=== PATIENT | female | born 1965 | race Caucasian/White ===

== ENCOUNTER 2020-06-13 08:25 | Observation (INO) | payer OTHER, SELFPAY ==
[2020-06-13] VITALS (27 sets, daily range): BP systolic 101–157; BP diastolic 56–97; PULSE 87–133; RESP 15–28; TEMP 36–37.1; O2SAT 97–100
--- NOTE | ~2020-06-13 | US_ITS ---
EXAMINATION: US pelvic complete w TV DATE: 06/14/2020 17:32 INDICATION: Vaginal bleeding TECHNIQUE: Multiple transabdominal and endovaginal sonographic images of the pelvis were obtained. COMPARISON: None. FINDINGS: The uterus measures 13.4 x 6.1 x 7.7 cm. The endometrial complex measures 24 mm. There is a 3.5 x 3.9 x 3.4 cm hypoechoic lesion in the uterine fundus which has the appearance of an intramural fibroid. A 7.4 x 6.6 x 6.4 cm isoechoic lesion is seen in the cervix. The ovaries are not visualized however no adnexal abnormality is seen. There is no free fluid in the pelvis. IMPRESSION: 1. Endometrial thickening which may be due to hyperplasia, polyp, or malignancy. Endometrial sampling is recommended. 2. Isoechoic lesion of the cervix possibly reflecting malignancy. Reviewed, dictated and finalized at location A. IMPRESSION: 1. Endometrial thickening which may be due to hyperplasia, polyp, or malignancy . Endometrial sampling is recommended. 2. Isoechoic lesion of the cervix possibly reflecting malignancy.
--- NOTE | 2020-06-13 08:32 | ECG_ITS ---
Measurements Intervals [place] Rate: 106 P: 49 MI: 115 QRS: -8 QRSD: 99 T: 36 QT: 347 QTc: 462 Interpretive Statements SINUS TACHYCARDIA WITH SHORT MI INTERVAL EARLY PRECORDIAL R/S TRANSITION VOLTAGE CRITERIA FOR LVH BORDERLINE ST ABNORMALITY- ANT/HIGH LAT LEADS BASELINE ARTIFACT- I, II, AVR, AVL, AVF ABNORMAL ECG Electronically Signed On 06-13-2020 8:42:42 CDT by Davonte Sosa D.O.
--- NOTE | 2020-06-13 09:01 | ED.FEMALEGU ---
HPI - Female Genitourinary General Chief complaint: Vaginal Bleeding Stated complaint: vaginal bleeding Time Seen by Provider: 06/13/20 08:48 Source: patient Mode of arrival: EMS Limitations: no limitations History of Present Illness HPI Narrative: 54-year-old female History of hypertension and hypothyroid Complains of 2 days of heavy vaginal bleeding with clots She is perimenopausal, reports a prior period around April 25 and does not recall the 1 before that but says it usually about every 6 or 8 weeks She has a mild amount of cramping discomfort She recalls having a similar episode a number of years ago and does not remember exactly what was done but vaguely recalls something about a mesh in her uterus Related Data Home Medications Medication Instructions Recorded Confirmed allopurinol 300 mg PO 06/13/20 levothyroxine 88 mcg PO 06/13/20 levothyroxine 100 mcg PO 06/13/20 metoprolol succinate 25 mg PO 06/13/20 spironolacton-hydrochlorothiaz 25 tablet PO 06/13/20 Allergies Allergy/AdvReac Type Severity Reaction Status Date / Time No Known Allergies Allergy Mild Verified 06/13/20 08:36 Review of Systems Review of Systems: All systems reviewed & are unremarkable except as noted in HPI and below Constitutional: Constitutional: Denies chills, Denies fatigue, Denies fever(s), Denies headache(s) and Denies night sweats Eyes: Eyes: Denies change in vision, Denies loss of vision and Denies other visual disturbances ENT: Denies headache(s), Denies hoarseness, Denies nasal congestion and Denies sore throat Cardiovascular: Cardiovascular: Denies leg edema, Denies palpitations and Denies dyspnea Respiratory: Respiratory: Denies cough, Denies dyspnea and Denies wheezing Gastrointestinal: Gastrointestinal: Denies abdominal pain, Denies diarrhea, Denies nausea and Denies vomiting Genitourinary: Genitourinary: Reports abnormal vaginal bleeding, Denies hematuria, Denies urinary frequency, Denies dysuria, Reports pelvic pain and Reports vaginal discharge Musculoskeletal: Musculoskeletal: Denies abnormal gait, Denies deformity, Denies joint swelling, Denies muscle weakness and Denies numbness Comments: Edema Integumentary/Breasts: Skin/Breast: Denies rash, Denies unusual bruising and Denies wounds Neurologic: Denies abnormal gait, Denies headache(s), Denies focal weakness, Denies loss of vision and Denies numbness Psychiatric: Psychiatric: Reports no additional psychiatric complaints Endocrine: Endocrine: Denies fatigue and Denies palpitations Hematologic/Lymphatic: Hematologic/Lymphatic: Denies easy bleeding and Denies easy bruising Allergic/Immunologic: Allergic/Immunologic: Denies wheezing Exam Const: General: no acute distress and well developed Nutritional Appearance: obese Orientation/consciousness: patient oriented x3 (alert) and Other orientation findings (Alert) HENMT: Head: normal to inspection, normocephalic and atraumatic General nose exam: No nasal discharge present Face and sinus: face symmetric Mouth: Yes tongue normal and Yes moist mucous membranes Throat: other (No exudate, no erythema) Eyes: Conjunctivae: conjunctivae normal Sclera: sclerae normal EOM: EOMs intact bilaterally Neck: Neck: normal visual inspection, full ROM and supple Thyroid: thyroid normal Chest: Chest palpation & inspection: normal inspection of the chest and tenderness Resp: Effort & Inspection: normal respiratory effort Auscultation: clear to auscultation bilaterally, no rales, no rhonchi, no wheezes and other (breath sounds equal) Cardio: Rate: regular rate Rhythm: regular rhythm Heart sounds: no gallops and no murmurs GI: Inspection: non-distended GI Palp: No abdominal tenderness, Yes Soft to palpation, No Tenderness to palpation present (GI) and No Palpable mass present Auscultation: other (bowel sounds present) : Other: Initially did not see much blood at all but once a retroverted cervix was rotated f
[2020-06-13 09:03] LABS: Basophils Percent Auto 0.3 % (0.2-1.2); Eosinophils Percent Auto 0.3 % (0-4.4); Hematocrit 31.1 % (37.0-47.0); Hemoglobin 10.2 g/dL (12.0-15.0); Immature Granulocyte Absolute 0.07 K/mm3 (0.00-0.031); Immature Granulocyte Percent A 0.6 % (0-0.5); Lymphocytes Absolute Auto 1.88 K/mm3 (0.9-3.2); Lymphocytes Percent Auto 16.1 % (18.3-44.2); Mean Corpuscular HGB Conc 32.8 g/dl (32-36); Mean Corpuscular Hemoglobin 29.5 pg (26-34); Mean Corpuscular Volume 89.9 fl (80-100); Mean Platelet Volume 10.3 fl (7.4-10.4); Monocytes Absolute Auto 0.6 K/mm3 (0.1-0.6); Monocytes Percent Auto 4.9 % (2.6-8.5); Neutrophils Absolute Auto 9.1 K/mm3 (1.3-6.7); Neutrophils Percent Auto 77.8 % (45.5-73.1); Platelet Count Result 338 k/mm3 (150-375); Red Blood Count 3.46 M/mm3 (4.2-5.4); Red Cell Distribution Width 13.4 % (11.5-14.5); White Blood Count 11.7 K/mm3 (4.5-10.0)
[2020-06-13] MEDS: LACTATED RINGERS 1,000 ML 999 ML IV CONT ×2 (09:29→11:57)
[2020-06-13 09:30] LABS: Anion Gap 13 mmol/L (8-16); Blood Urea Nitrogen 11 mg/dL (7-17); Calcium 9.1 mg/dL (8.4-10.2); Carbon Dioxide 21 mmol/L (22-30); Chloride 101 mmol/L (98-107); Estimated CRCL calculation 90 ml/min; Estimated Glomerular Filt Rate > 60; Glucose 179 mg/dL (65-105); Potassium 3.3 mmol/L (3.4-5.0); Sodium 135 mmol/L (137-145)
[2020-06-13 09:44] LABS: INR 1.1; Prothrombin Time 13.4 Seconds (11.1-14.7)
[2020-06-13 10:07] LABS: Free T4 Free Thyroxine 1.69 ng/mL (0.78-2.19)
[2020-06-13 10:21] LABS: Thyroid Stimulating Hormone Reflex 0.115 uIU/mL (0.465-4.68)
[2020-06-13] MEDS: ESTROGENS, CONJUGATED 25 MG/5 ML VIAL IM (11:55)
[2020-06-13] MEDS: TRANEXAMIC ACID 1,000 MG/10 ML AMPUL 1000 MG IV PUSH (11:56)
[2020-06-13] MEDS: WATER, STERILE FOR INJECTION 10 ML VIAL XX (11:58)
--- NOTE | 2020-06-13 12:14 | PM.IMHP ---
H&P: HPI History of Present Illness Date/Time: 06/13/20 12:14 Chief complaint: vaginal bleeding Narrative: Marquita Michele is a 54 year old femaleWho presents emergency department with vaginal bleeding. She was evaluated by the emergency room doctor and found to have persistent following bright red blood. Cervix could not be evaluated due to the amount of blood that persisted in the vaginal vault. She denies any chest pain or shortness of breath. She denies any nausea, vomiting, fever, chills. She has long history of irregular bleeding. She has bled intermittently for years. Review of Systems Constitutional: Constitutional: Reports no additional constitutional complaints, Denies fatigue, Denies headache(s), Denies lethargy and Denies weakness Eyes: Eyes: Reports no additional eye complaints, Denies blurry vision and Denies photophobia ENT: Reports as per HPI, Denies headache(s) and Denies neck pain Cardiovascular: Cardiovascular: Denies chest pain, Denies diaphoresis, Denies leg edema, Denies palpitations and Denies dyspnea Respiratory: Respiratory: Denies hemoptysis, Denies dyspnea and Denies wheezing Gastrointestinal: Gastrointestinal: Denies abdominal pain, Denies melena, Denies bloating, Denies hematochezia, Denies nausea and Denies vomiting Genitourinary: Genitourinary: Reports no additional female genitourinary complaints Musculoskeletal: Musculoskeletal: Denies joint swelling, Denies neck pain, Denies numbness and Denies stiffness Neurologic: Denies Abnormal speech present, Denies confusion, Denies headache(s), Denies numbness and Denies weakness Psychiatric: Psychiatric: Denies anxiety, Denies confusion, Denies depression, Denies homicidal ideation and Denies suicidal ideation Endocrine: Endocrine: Denies fatigue and Denies palpitations Allergic/Immunologic: Allergic/Immunologic: Denies wheezing Meds Home Medications and Allergies Home Medications Medication Instructions Recorded Confirmed Type allopurinol 300 mg PO 06/13/20 History levothyroxine 88 mcg PO 06/13/20 History levothyroxine 100 mcg PO 06/13/20 History metoprolol succinate 25 mg PO 06/13/20 History spironolacton-hydrochlorothiaz 25 tablet PO 06/13/20 History Allergies Allergy/AdvReac Type Severity Reaction Status Date / Time No Known Allergies Allergy Mild Verified 06/13/20 08:36 Vital Signs Vital Signs - 24 hr 06/13/20 08:23 06/13/20 09:00 06/13/20 11:00 Temperature 98.7 F Pulse Rate 109 H 102 H 106 H Respiratory Rate 18 21 H Blood Pressure 121/93 H 125/89 115/62 Pulse Oximetry 100 100 06/13/20 11:12 06/13/20 11:13 06/13/20 11:59 Temperature Pulse Rate 108 H 133 H 88 Respiratory Rate 28 H Blood Pressure 101/56 L 120/76 115/62 Pulse Oximetry 100 Exam Const: General: healthy appearing, comfortable and no acute distress; No confusion Orientation/consciousness: No confusion Eyes: Direct Ophthalmoscopy: No photophobia Resp: Auscultation: clear to auscultation bilaterally, no rales, no rhonchi and no wheezes Cardio: Rate: regular rate Heart sounds: no click, no murmurs and no rubs GI: Inspection: non-distended GI Palp: No abdominal tenderness Auscultation: normal bowel sounds Neuro: General: No confusion Speech: No Abnormal speech present Extrem: General: normal to inspection, no pedal edema and no calf tenderness H&P: Results Labs Labs: Short CBC 06/13/20 Range/Units 08:55 WBC 11.7 H (4.5-10.0) K/mm3 Hgb 10.2 L (12.0-15.0) g/dL Hct 31.1 L (37.0-47.0) % Plt Count 338 (150-375) k/mm3 [facility] 06/13/20 08:54 Sodium 135 L Potassium 3.3 L Chloride 101 Carbon Dioxide 21 L BUN 11 Creatinine 0.70 Glucose 179 H Calcium 9.1 Assessment and Plan Assessment and plan (1) Uterine hemorrhage: Code(s): N93.9 - Abnormal uterine and vaginal bleeding, unspecified Status: Acute Assessment and Plan: This patient is a 54-year-old femal
--- NOTE | 2020-06-13 12:59 | WPDANESEPPF ---
Anes - Initial Pre Proc Eval Procedure: Operation Date: 06/13/20 12:45 Proposed Procedures p Vaginal Exam Under Anesthesia, Possible Dilatation and Curettage - Juan Jose Greenberg MD Date/Time: 06/13/20 12:59 Surgeon: Juan Jose Greenberg MD Pre Op Diagnosis: vaginal bleeding Patient Data Age: 54 Gender: F Height: 5 ft 3 in Weight: 106 kg Last Vital Signs Temp 37.1 C 06/13/20 08:23 Pulse 88 06/13/20 12:30 Resp 18 06/13/20 12:30 BP 102/86 06/13/20 12:30 Pulse Ox 98 06/13/20 12:30 Allergies Allergy/AdvReac Type Severity Reaction Status Date / Time No Known Allergies Allergy Mild Verified 06/13/20 08:36 Home Medications Medication Instructions Recorded Confirmed Type allopurinol 300 mg PO 06/13/20 History levothyroxine 88 mcg PO 06/13/20 History levothyroxine 100 mcg PO 06/13/20 History metoprolol succinate 25 mg PO 06/13/20 History spironolacton-hydrochlorothiaz 25 tablet PO 06/13/20 History Laboratory Tests 06/13/20 06/13/20 06/13/20 08:54 08:54 08:54 WBC RBC Hgb Hct MCV MCH MCHC RDW Plt Count MPV Immature Gran % (Auto) Neut % (Auto) Lymph % (Auto) [place] % (Auto) Eos % (Auto) Baso % (Auto) Lymph # (Auto) [place] # (Auto) Eos # (Auto) Baso # (Auto) Abs Immat Gran (auto) Absolute Neuts (auto) Absolute Nucleated RBC Nucleated RBC % PT INR Sodium 135 mmol/L L mmol/L (137-145) Potassium 3.3 mmol/L L mmol/L (3.4-5.0) Chloride 101 mmol/L mmol/L (98-107) Carbon Dioxide 21 mmol/L L mmol/L (22-30) Anion Gap 13 mmol/L mmol/L (8-16) BUN 11 mg/dL mg/dL (7-17) Creatinine 0.70 mg/dL mg/dL (0.7-1.0) Estim Creat Clear Calc 90 ml/min ml/min Estimated GFR > 60 (59 - ) Glucose 179 mg/dL H mg/dL (65-105) Calcium 9.1 mg/dL mg/dL (8.4-10.2) TSH (Reflex) 0.115 uIU/mL L uIU/mL (0.465-4.68) Free T4 1.69 ng/mL ng/mL Cancelled (0.78-2.19) Blood Type Antibody Screen 06/13/20 06/13/20 06/13/20 08:55 08:55 09:27 WBC 11.7 K/mm3 H K/mm3 (4.5-10.0) RBC 3.46 M/mm3 L M/mm3 (4.2-5.4) Hgb 10.2 g/dL L g/dL (12.0-15.0) Hct 31.1 % L % (37.0-47.0) MCV 89.9 fl fl (80-100) MCH 29.5 pg pg (26-34) MCHC 32.8 g/dl g/dl (32-36) RDW 13.4 % % (11.5-14.5) Plt Count 338 k/mm3 k/mm3 (150-375) MPV 10.3 fl fl (7.4-10.4) Immature Gran % (Auto) 0.6 % H % (0-0.5) Neut % (Auto) 77.8 % H % (45.5-73.1) Lymph % (Auto) 16.1 % L % (18.3-44.2) [place] % (Auto) 4.9 % % (2.6-8.5) Eos % (Auto) 0.3 % % (0-4.4) Baso % (Auto) 0.3 % % (0.2-1.2) Lymph # (Auto) 1.88 K/mm3 K/mm3 (0.9-3.2) [place] # (Auto) 0.6 K/mm3 K/mm3 (0.1-0.6) Eos # (Auto) 0.0 K/mm3 K/mm3 (0-0.3) Baso # (Auto) 0.0 K/mm3 K/mm3 (0.0-0.1) Abs Immat Gran (auto) 0.07 K/mm3 H K/mm3 (0.00-0.031) Absolute Neuts (auto) 9.1 K/mm3 H K/mm3 (1.3-6.7) Absolute Nucleated RBC 0.0 K/mm3 K/mm3 (0.0-0.012) Nucleated RBC % 0.0 % % (0.0-0.2) PT 13.4 Seconds Seconds (11.1-14.7) INR 1.1 Sodium Potassium Chloride Carbon Dioxide Anion Gap BUN Creatinine Estim Creat Clear Calc Estimated GFR Glucose Calcium TSH (Reflex) Free T4 Blood Type O Positive
[2020-06-13] MEDS: LACTATED RINGERS 1,000 ML 30 ML IV CONT (13:04)
--- NOTE | 2020-06-13 13:06 | WPDHPUPDATE1 ---
History and Physical Update Update Date/Time: 06/13/20 13:06 History and Physical has been reviewed, including an updated exam of the patient. There are NO changes in the patient's condition. Risks, benefits, and alternatives have been discussed and questions answered. Patient agrees to proceed with procedure.
--- NOTE | 2020-06-13 14:00 | PM.PROC ---
Procedure Note - Detailed Date of procedure: 06/13/20 Pre-op diagnosis: vaginal bleeding Post-op diagnosis: same (Cervical cancer) Description of procedure: the patient is taken the operating room. She was prepped draped in dorsal lithotomy position after induction of mac anesthesia. Speculum was placed in the vagina. The vaginal packing was removed that was placed in the emergency department. The cervix was examined. The above findings were noted. A cervical biopsy was performed in the central portion of the cervix. There was a mass in this area. Monsel's was placed on the cervix and pressure was held. He continued to bleed. Ultimately was bleeding very slowly but persistently. Vaginal packing was placed a large collection of Monsel's was upon the cervix. The speculum had been withdrawn. Anesthesia: MAC Surgeon: Juan Jose Greenberg MD Estimated blood loss (mL): 100 Packing: Yes Pathology: yes Complications: No immediate complications Condition: stable Disposition: floor Findings: very large barrel-shaped some cervix, mass in the central portion of the cervix. The cervix and uterus were immobile
[2020-06-13] MEDS: LACTATED RINGERS 1,000 ML 125 ML IV CONT (16:03)
--- NOTE | 2020-06-13 16:32 | ADMGEN ---
This patient, Marquita Michele, was admitted to 2 Medical Room 249-. Patient/family oriented to hospital policies and general routines including ID bracelet, bed and alarms, visiting hours, pain management, procedures, bathroom and other care routines, personal items, smoking policy, room service/diet, and visiting hours. Valuables list has been completed. Information on how to activate the Rapid Response Team has been discussed. Patient/Family are encouraged to report perceived risks to care and to ask questions if they do not understand what they are told or what they should do.
[2020-06-13 16:33] LABS: Basophils Percent Auto 0.3 % (0.2-1.2); Eosinophils Percent Auto 0.3 % (0-4.4); Hematocrit 24.2 % (37.0-47.0); Hemoglobin 8.2 g/dL (12.0-15.0); Immature Granulocyte Absolute 0.05 K/mm3 (0.00-0.031); Immature Granulocyte Percent A 0.4 % (0-0.5); Lymphocytes Absolute Auto 2.16 K/mm3 (0.9-3.2); Lymphocytes Percent Auto 18.7 % (18.3-44.2); Mean Corpuscular HGB Conc 33.9 g/dl (32-36); Mean Corpuscular Hemoglobin 29.7 pg (26-34); Mean Corpuscular Volume 87.7 fl (80-100); Mean Platelet Volume 10.1 fl (7.4-10.4); Monocytes Absolute Auto 0.5 K/mm3 (0.1-0.6); Monocytes Percent Auto 4.4 % (2.6-8.5); Neutrophils Absolute Auto 8.8 K/mm3 (1.3-6.7); Neutrophils Percent Auto 75.9 % (45.5-73.1); Platelet Count Result 273 k/mm3 (150-375); Red Blood Count 2.76 M/mm3 (4.2-5.4); Red Cell Distribution Width 13.2 % (11.5-14.5); White Blood Count 11.6 K/mm3 (4.5-10.0)
[2020-06-13] MEDS: SODIUM CHLORIDE 0.9% IV 250 ML 30 ML IV CONT (19:07)
[2020-06-14] VITALS (8 sets, daily range): BP systolic 95–132; BP diastolic 52–73; PULSE 79–93; RESP 12–22; TEMP 36.3–36.6; O2SAT 97–100
[2020-06-14] MEDS: LACTATED RINGERS 1,000 ML 125 ML IV CONT ×2 (02:26→19:35)
[2020-06-14 02:32] LABS: Hematocrit 24.4 % (37.0-47.0); Hemoglobin 8.1 g/dL (12.0-15.0)
--- NOTE | 2020-06-14 08:05 | WPDANESPN ---
Anes - Prog Note Post-Op Date/Time: 06/14/20 08:05 Cardiovascular status: normal Respiratory status: normal Airway patency: baseline Mental status: baseline Post-Op hydration status: normal Vital Signs: Last Vital Signs Temp 36.3 C L 06/14/20 04:00 Pulse 90 06/14/20 04:00 Resp 20 06/14/20 04:00 BP 108/62 06/14/20 04:00 Pulse Ox 99 06/14/20 04:00 Pain Score (VAS): 0 I/O: Intake & Output 06/13/20 06/14/20 06/14/20 23:59 07:59 15:59 Intake Total 670 1100 Output Total 325 Balance 670 775 Laboratory Tests 06/14/20 02:11 06/13/20 08:54 06/13/20 06/13/20 06/13/20 08:54 08:54 08:54 WBC RBC Hgb Hct MCV MCH MCHC RDW Plt Count MPV Immature Gran % (Auto) Neut % (Auto) Lymph % (Auto) [place] % (Auto) Eos % (Auto) Baso % (Auto) Lymph # (Auto) [place] # (Auto) Eos # (Auto) Baso # (Auto) Abs Immat Gran (auto) Absolute Neuts (auto) Absolute Nucleated RBC Nucleated RBC % PT INR Sodium 135 L Potassium 3.3 L Chloride 101 Carbon Dioxide 21 L Anion Gap 13 BUN 11 Creatinine 0.70 Estim Creat Clear Calc 90 Estimated GFR > 60 Glucose 179 H Calcium 9.1 TSH (Reflex) 0.115 L Free T4 1.69 Cancelled Blood Type Antibody Screen Crossmatch 06/13/20 06/13/20 06/13/20 08:55 08:55 09:27 WBC 11.7 H RBC 3.46 L Hgb 10.2 L Hct 31.1 L MCV 89.9 MCH 29.5 MCHC 32.8 RDW 13.4 Plt Count 338 MPV 10.3 Immature Gran % (Auto) 0.6 H Neut % (Auto) 77.8 H Lymph % (Auto) 16.1 L [place] % (Auto) 4.9 Eos % (Auto) 0.3 Baso % (Auto) 0.3 Lymph # (Auto) 1.88 [place] # (Auto) 0.6 Eos # (Auto) 0.0 Baso # (Auto) 0.0 Abs Immat Gran (auto) 0.07 H Absolute Neuts (auto) 9.1 H Absolute Nucleated RBC 0.0 Nucleated RBC % 0.0 PT 13.4 INR 1.1 Sodium Potassium Chloride Carbon Dioxide Anion Gap BUN Creatinine Estim Creat Clear Calc Estimated GFR Glucose Calcium TSH (Reflex) Free T4 Blood Type O Positive Antibody Screen Negative Crossmatch See Detail 06/13/20 06/14/20 16:23 02:11 WBC 11.6 H RBC 2.76 L Hgb 8.2 L 8.1 L Hct 24.2 L 24.4 L MCV 87.7 MCH 29.7 MCHC 33.9 RDW 13.2 Plt Count 273 MPV 10.1 Immature Gran % (Auto) 0.4 Neut % (Auto) 75.9 H Lymph % (Auto) 18.7 [place] % (Auto) 4.4 Eos % (Auto) 0.3 Baso % (Auto) 0.3 Lymph # (Auto) 2.16 [place] # (Auto) 0.5 Eos # (Auto) 0.0 Baso # (Auto) 0.0 Abs Immat Gran (auto) 0.05 H Absolute Neuts (auto) 8.8 H Absolute Nucleated RBC 0.0 Nucleated RBC % 0.0 PT INR Sodium Potassium Chloride Carbon Dioxide Anion Gap BUN Creatinine Estim Creat Clear Calc Estimated GFR Glucose Calcium TSH (Reflex) Free T4 Blood Type Antibody Screen Crossmatch Post-procedural complaints: none Patient Feedback: Patient satisfied with anesthetic care.
[2020-06-14] MEDS: hydroCHLOROthiazide 25 MG TABLET PO (12:10)
[2020-06-14] MEDS: allopurinoL 300 MG TABLET PO (12:10)
[2020-06-14] MEDS: LEVOTHYROXINE SODIUM 100 MCG TABLET PO (12:10)
[2020-06-14] MEDS: METOPROLOL SUCCINATE EXT REL 25 MG TABCR PO (12:10)
[2020-06-14] MEDS: SPIRONOLACTONE 25 MG TABLET PO (12:10)
[2020-06-14] MEDS: LEVOTHYROXINE SODIUM 88 MCG TABLET PO (12:31)
--- NOTE | 2020-06-14 13:32 | PM.GYNPNOP ---
SANDWICH AND DRINK CART OPERATOR - A/P Assessment and plan (1) Cervical cancer: Code(s): C53.9 - Malignant neoplasm of cervix uteri, unspecified Status: Acute (2) Uterine hemorrhage: Code(s): N93.9 - Abnormal uterine and vaginal bleeding, unspecified Status: Acute Assessment and Plan: patient is a 54-year-old female with cervical cancer, contacted Gynecologic Oncology. They are going to see her tomorrow. Packing was removed she did not bleed for 3 hours. She is dry at this time. She will be discharged soon. She was given precautions through her daughter. Postoperative Procedures: Procedures Operation Date: 06/13/20 12:45 Actual Procedures Side Surgeon p Vaginal Exam Under Anesthesia with cervical biopsy Not Applicable Juan Jose Greenberg MD Time Spent With Patient Time: Total time spent is greater than 50% in coordination of care (as documented) at patient's floor/unit and/or counseling patient: Time with patient: less than 15 minutes SANDWICH AND DRINK CART OPERATOR- PN:Subj Post-Op Subjective Date/time seen: 06/14/20 13:32The patient had packing in overnight, there was no bleeding. packing was removed this morning. Exam Const: General: healthy appearing, comfortable and no acute distress Resp: Auscultation: clear to auscultation bilaterally, no rales, no rhonchi and no wheezes Cardio: Rate: regular rate Heart sounds: no click, no murmurs and no rubs GI: Inspection: non-distended Auscultation: normal bowel sounds Extrem: General: normal to inspection, no pedal edema and no calf tenderness SANDWICH AND DRINK CART OPERATOR - PN: Obj Data Vital Signs Vital Signs: Vital Signs - 24 hr 06/13/20 14:00 06/13/20 14:15 06/13/20 14:30 Temperature 97.2 F L Pulse Rate 94 93 94 Respiratory Rate 15 18 19 Blood Pressure 124/83 119/86 131/60 Pulse Oximetry 100 99 99 06/13/20 14:45 06/13/20 15:00 06/13/20 15:15 Temperature 97.3 F L Pulse Rate 93 95 110 H Respiratory Rate 24 H 24 H 25 H Blood Pressure 143/73 H 131/94 H 157/97 H Pulse Oximetry 100 100 06/13/20 15:30 06/13/20 16:10 06/13/20 16:40 Temperature 97.5 F L 97.9 F 97.9 F Pulse Rate 115 H 101 H 99 Respiratory Rate 25 H 18 16 Blood Pressure 132/82 126/77 126/66 Pulse Oximetry 100 100 100 06/13/20 17:30 06/13/20 17:33 06/13/20 17:40 Temperature 98.2 F 98.0 F Pulse Rate 114 H 99 Respiratory Rate 18 16 Blood Pressure 143/79 H 109/68 Pulse Oximetry 100 100 100 06/13/20 19:00 06/13/20 19:20 06/13/20 20:20 Temperature 97.5 F L 97.6 F 96.8 F L Pulse Rate 98 102 H 88 Respiratory Rate 16 18 18 Blood Pressure 128/69 104/61 109/59 L Pulse Oximetry 100 97 97 06/13/20 20:30 06/13/20 21:20 06/13/20 21:47 Temperature 96.9 F L 96.8 F L Pulse Rate 95 91 88 Respiratory Rate 22 H 18 18 Blood Pressure 108/71 109/59 L Pulse Oximetry 99 100 97 06/13/20 22:19 06/14/20 02:20 06/14/20 04:00 Temperature 97.1 F L 97.4 F L Pulse Rate 91 87 90 Respiratory Rate 20 22 H 20 Blood Pressure 111/59 L 108/62 Pulse Oximetry 100 98 99 06/14/20 12:10 Temperature Pulse Rate 90 Respiratory Rate Blood Pressure Pulse Oximetry Intake/Output Intake/Output: Intake & Output 06/11/20 06/12/20 06/13/20 06/14/20 23:59 23:59 23:59 23:59 Intake Total 2170 2340 Output Total 725 Balance 2170 1615 Meds/Results Medications: Active Medications Generic Name Dose Route Start Last Admin Trade Name Freq PRN Reason Stop Dose Admin Allopurinol 300 mg 06/14/20 09:00 06/14/20 12:10 Zyloprim PO 300 mg DAILY TAMARA Administration Hydrochlorothiazide 25 mg 06/14/20 09:00 06/14/20 12:10 Hydrochlorothiazide PO 25 mg DAILY TAMARA Administration Lactated Ringer's 1,000 mls @ 125 mls/hr 06/13/20 14:05 06/14/20 10:26 Lr - Lactated Ringers Iv IV CONT Infused .Q8H TAMARA Infusion Levothyroxine Sodium 100 mcg 06/14/20 11:00 06/14/20 12:10 Synthroid PO 100 mcg DAILY@0630 TAMARA Administration Levothyroxine Sodium 88 mcg 06/14/20 11:00 06/14/20 12:31 Syn
[2020-06-14] MEDS: ACETAMINOPHEN 500 MG TABLET 1000 MG PO (20:26)
--- NOTE | 2020-06-14 21:02 | PC.NURSE ---
Addendum entered by Obie Merchant RN 06/14/20 22:56: Lab informed me they were able to add two units from their end at 2200. Blood infusion start at 2245. Original Note: Order for 2u RBC rejected twice. IT was called and they said they would have to call [employer] to fix the error, they will call back with further information.
[2020-06-14] MEDS: SODIUM CHLORIDE 0.9% IV 250 ML 30 ML IV CONT (22:45)
[2020-06-15] VITALS (20 sets, daily range): BP systolic 100–154; BP diastolic 56–94; PULSE 62–97; RESP 12–20; TEMP 36.3–36.9; O2SAT 96–100
[2020-06-15] MEDS: LEVOTHYROXINE SODIUM 88 MCG TABLET PO (06:17)
[2020-06-15] MEDS: LEVOTHYROXINE SODIUM 100 MCG TABLET PO (06:17)
[2020-06-15] MEDS: hydroCHLOROthiazide 25 MG TABLET PO (08:00)
[2020-06-15] MEDS: SPIRONOLACTONE 25 MG TABLET PO (08:01)
[2020-06-15] MEDS: allopurinoL 300 MG TABLET PO (08:01)
[2020-06-15] MEDS: METOPROLOL SUCCINATE EXT REL 25 MG TABCR PO (08:01)
[2020-06-15] MEDS: LACTATED RINGERS 1,000 ML 30 ML IV CONT (09:44)
--- NOTE | 2020-06-15 09:48 | WPDANESEFPP ---
Anes - Eval Final PreProcedure Day of Procedure 06/15/20 09:48 Patient weight: morbidly obese Heart: regular rate and rhythm Lungs: clear to auscultation Airway: Mallampati scale class II Neurological: alert and oriented Last oral intake: >/= 8 hours ASA classification: III Emergent: no Anesthetic plan: proceed Anesthesia type and monitoring: general GIVS and standard monitoring Informed Consent: The patient's anesthetic plan and its attendant risks and benefits were discussed with the patient/family/POA. Questions were solicited and answers provided to the satisfaction of the patient/family/POA.
--- NOTE | 2020-06-15 10:04 | WPDHPUPDATE1 ---
History and Physical Update Update Date/Time: 06/15/20 10:04 History and Physical has been reviewed, including an updated exam of the patient. There are NO changes in the patient's condition. Risks, benefits, and alternatives have been discussed and questions answered. Patient agrees to proceed with procedure.
[2020-06-15] MEDS: LIDOCAINE HCL 1% LOCAL INJ 20 ML VIAL 10 ML INFILTRATE (10:54)
[2020-06-15] MEDS: TRANEXAMIC ACID 1,000 MG/10 ML AMPUL 1000 MG IV PUSH (11:03)
--- NOTE | 2020-06-15 11:09 | SUR.OPER ---
550ml ns in, 450ns out. aware
--- NOTE | 2020-06-15 11:29 | P.OP_ITS ---
Procedure Note - Detailed Date of procedure: 06/15/20 Pre-op diagnosis: vaginal bleeding Abnormal uterine bleeding,Uterine hemorrhage, cervical mass, endometrial thickening Post-op diagnosis: same Procedure performed: Hysteroscopy D&C Description of procedure: The patient was taken the operating room. She was prepped and draped in the dorsal lithotomy position after induction of mac anesthesia. A speculum was placed in the vagina. The cervix grasped with a tenaculum. The cervix was injected at 3 and 9:00 a.m. with 1% lidocaine. Cervix was dilated up to 1 cm. The hysteroscope was inserted the intrauterine c avity and the above findings were noted. A medium-size curette was then used to curettage all surfaces within the endometrial cavity. The endometrial curettings were collected on a Telfa. There were submitted to the pathology department. Hysteroscope was reinserted the intrauterine cavity to re-examine the endometrial surfaces. The hysteroscope was withdrawn. The tenaculum was removed. The speculum was removed. The patient tolerated the procedure well. She was taken recovery room stable condition. Sponge lap needle counts were correct x2. Anesthesia: MAC Surgeon: Juan Jose Greenberg MD Estimated blood loss (mL): 75 Drains: No Packing: No Pathology: yes Complications: No immediate complications Condition: stable Disposition: PACU Findings: There was marked thickening of the endometrium, irregular surface tissue with nodular /vesicular contour. There was normal appearing vulva vagina. Enlarged barrel-shaped cervix , mass with ulcer erosion on a surface the external os.
--- NOTE | 2020-06-15 12:26 | PC.NURSE ---
Patient to OR per bed at 0920 and returned at 1226.
--- NOTE | 2020-07-10 20:37 | PM.GYNPNOP ---
CHECK OUT CASHIER - A/P Postoperative Procedures: Procedures Operation Date: 06/13/20 12:45 Actual Procedures Side Surgeon p Vaginal Exam Under Anesthesia with cervical biopsy Not Applicable Juan Jose Greenberg MD Operation Date: 06/15/20 11:30 Actual Procedures Side Surgeon p Hysteroscopy Dilation and Curettage, Endometrial Biopsy Not Applicable Juan Jose Greenberg MD Time Spent With Patient Time: Total time spent is greater than 50% in coordination of care (as documented) at patient's floor/unit and/or counseling patient: Time with patient: less than 15 minutes CHECK OUT CASHIER- PN:Subj Post-Op Subjective Date/time seen: 07/10/20 20:37 this patient is a 54-year-old female with vaginal hemorrhage. We she was we observed and 2 procedures were performed to determine exactly the nature of her bleeding. Ultimately uterine /endometrial cancer was diagnosed. The patient was discharged home in stable condition. Her bleeding had stopped. The proper consult for arranged. CHECK OUT CASHIER - PN: Obj Data Meds/Results Radiology Results: ITS Impressions Pelvic/Transvag US 06/14/20 18:26 IMPRESSION: 1. Endometrial thickening which may be due to hyperplasia, polyp, or malignancy. Endometrial sampling is recommended. 2. Isoechoic lesion of the cervix possibly reflecting malignancy. Labs CBC & Chem 7: 06/14/20 02:11 06/13/20 08:54
--- NOTE | 2020-08-01 21:22 | PM.DS ---
DS: Admitting Diagnosis Admitting Diagnosis Admitting Diagnosis: vaginal bleeding DS: Discharge Diagnosis Discharge Diagnosis (1) Endometrial cancer: Code(s): C54.1 - Malignant neoplasm of endometrium Status: Acute DS: Summary Hospital Course Reason for hospitalization: vaginal hemorrhage Hospital Course: this patient present hospital with heavy vaginal bleeding. She is examined under anesthesia initially and thought to have a cervical cancer. This was found to be only a polyp in a further examination was performed under anesthesia were endometrial biopsy and hysteroscopy was performed. Endometrial cancer was diagnosed. Her bleeding was controlled. She was discharged in stable condition with her bleeding under control. She had appropriate follow-up arranged with [facility] Status at Discharge Functional status at discharge: independent ambulation Time Spent with Patient Time attestation: Total time spent providing and/or coordinating discharge services: DS: Data Data Completed and Pending Completed studies during hospitalization: Pending at discharge 06/13/20 13:44 Surgical [PTH] Routine 06/15/20 10:56 Surgical [PTH] Routine Discharge Plan Discharge Attending physician on discharge: Juan Jose Greenberg Consulting providers: Davonte Sosa ; Yunior Harrington Discharging Clinician: Juan Jose Greenberg Anticipated Discharge Date/Time: 06/15/20 17:32 Patient Disposition: Home, Self-Care Activity: as tolerated and pelvic rest Diet: regular Wound Care Instructions: other - see discharge instructions Discharge Instructions: Follow up with Dr. Greenberg tomorrow. Leave packing in place. Patient Instructions: Antibiotic Form Stand Alone Forms: General Discharge Information Follow-up/Referrals: Juan Jose Greenberg MD [Physician] - Discharge Medications: Continued levothyroxine 100 mcg tablet 100 mcg PO DAILY RF: 0 levothyroxine 88 mcg tablet 88 mcg PO DAILY RF: 0 allopurinol 300 mg tablet 300 mg PO DAILY RF: 0 spironolacton-hydrochlorothiaz 25-25 mg tablet 25 tablet PO DAILY RF: 0 metoprolol succinate 25 mg tablet extended release 24 hr 25 mg PO DAILY RF: 0 Date of admission: 06/13/20 14:04 Primary Care Provider: Yo Pink Admitting Provider: Juan Jose Greenberg Attending physician on admission: Juan Jose Greenberg Condition: Stable
== END 2020-06-15 17:50 | disposition home or self-care (01) ==
LOC: ANHED 12:02 → ANHSURGERY 12:04 → ANH2MED 15:48
PROVIDERS: Admitting Provider Obstetrics & Gynecology; Emergency Provider Emergency Medicine; PCP Family Medicine; Visit Provider Obstetrics & Gynecology
PROC: (CPT 57500; principal; 2020-06-13 12:45)
PROC: 0U5B8ZZ Destruction of Endometrium, Via Natural or Artificial Opening Endoscopic (ICD-10-PCS; CPT 58563; principal; 2020-06-15 11:30)
DX: C54.1 Malignant neoplasm of endometrium (principal); N84.0 Polyp of corpus uteri; N92.4 Excessive bleeding in the premenopausal period; Z23 Encounter for immunization; R94.31 Abnormal electrocardiogram [ECG] [EKG]; I10 Essential (primary) hypertension; E03.9 Hypothyroidism, unspecified; E66.01 Morbid (severe) obesity due to excess calories; Z68.41 Body mass index [BMI] 40.0-44.9, adult; G47.33 Obstructive sleep apnea (adult) (pediatric)
CPT/HCPCS: 57500; 58558; 36415; 36430; 76830; 76856; 80048; 81025; 84439; 84443; 85014; 85018; 85025; 85610; 86850; 86900; 86901; 86923; 88305; 88342; 90471; 90686; 93005; 96360; 96361; 96372; 96374; 99285; A9270; G0008; G0378; G0379; J1410; J2250; J2405; J2704; J3010; J7050; J7120; P9016

== ENCOUNTER 2020-10-14 15:09 | Outpatient (CLI) | payer BC, SELFPAY ==
[2020-10-14 16:03] LABS: SARS-CoV-2 Ag Negative (Negative)
[2020-10-16 17:16] LABS: SARS-CoV-2 RNA PCR Negative
== END 2020-10-14 15:10 | disposition home or self-care (01) ==
LOC: CHSLAB 15:13
PROVIDERS: PCP Family Medicine; Visit Provider Family Medicine
DX: J00 Acute nasopharyngitis [common cold] (principal); Z20.822 Contact with and (suspected) exposure to COVID-19
CPT/HCPCS: 87426; C9803; U0003; U0005

== ENCOUNTER 2020-12-10 09:11 | Outpatient (CLI) | payer BC, SELFPAY ==
[2020-12-10 09:30] LABS: Appearance Urine Clear (Clear); Bilirubin Urine Negative (Negative); Color Urine Yellow (Yellow); Glucose Urine UA Negative (Negative); Ketones Urine Negative (Negative); Leukocyte Esterase Ur 1+ (Negative); Nitrate Urine Negative (Negative); Protein Urine Negative (Negative); Specific Grav Ur 1.025 (1.010-1.020); Urobilinogen Urine 0.2 mg/dL (0.2-1.0); pH Urine 5.5 (5.0-8.0)
[2020-12-10 09:36] LABS: Add Urine Microscopic? YES; Bacteria Urine 1+ /hpf; Blood Urine Trace-Intact (Negative); RBC Urine None seen /hpf (0-2); Squamous Epithelial Cell Urine Few /hpf (Few)
== END 2020-12-10 09:12 | disposition home or self-care (01) ==
LOC: CHSLAB 09:14
PROVIDERS: PCP Family Medicine; Visit Provider Obstetrics & Gynecology Gynecologic Oncology
DX: R35.0 Frequency of micturition (principal); M54.5 Low back pain
CPT/HCPCS: 81001; 87086

== ENCOUNTER 2021-05-19 13:26 | Outpatient (CLI) | payer BC, SELFPAY ==
[2021-05-19 13:41] LABS: Hematocrit 32.3 % (35.0-49.0); Hemoglobin 10.5 g/dL (12.0-15.0); Mean Corpuscular HGB Conc 32.5 g/dL (32.0-36.0); Mean Corpuscular Hemoglobin 29.8 pg (27.0-31.0); Mean Corpuscular Volume 91.8 fL (78.0-102.0); Mean Platelet Volume 9.5 fl (9.2-11.8); Platelet Count Result 261 K/mm3 (150-420); Red Blood Count 3.52 M/mm3 (4.20-5.40); White Blood Count 14.4 K/mm3 (4.8-10.8)
[2021-05-19 13:42] LABS: Add Urine Microscopic? YES; Appearance Urine Clear (Clear); Bilirubin Urine Negative (Negative); Blood Urine 1+ (Negative); Color Urine Light Yellow (Yellow); Glucose Urine UA Negative (Negative); Ketones Urine Negative (Negative); Leukocyte Esterase Ur Trace (Negative); Nitrate Urine Negative (Negative); Protein Urine 2+ (Negative); Specific Grav Ur >= 1.030 (1.010-1.020); Urobilinogen Urine 0.2 mg/dL (0.2-1.0)
[2021-05-19 13:52] LABS: Bacteria Urine Trace /hpf; Squamous Epithelial Cell Urine Few /hpf (Few)
[2021-05-19 14:07] LABS: Band Neutrophils Percent 0 % (0-6); Lymphocytes Absolute Manual 0.57 K/mm3 (1.1-4.5); Lymphocytes Percent Manual 4 % (18-44); Metamyelocytes Percent 3 %; Monocytes Percent Manual 0 % (3-9); Myelocytes Percent 8 %; Neutrophils Absolute Manual 12.24 K/mm3 (1.7-7.2); Neutrophils Percent Manual 85 % (46-73); Total Cells Counted 100
[2021-05-19 14:11] LABS: Creatinine Urine 94.83 mg/dL (40-278); MALB Creatinine Ratio 316.3 mg/g (0-30)
[2021-05-19 14:26] LABS: Alanine Aminotransferase 41 U/L (14-59); Albumin Level 3.7 g/dL (3.4-5.0); Alkaline Phosphatase 68 U/L (46-116); Anion Gap 8 mmol/L (8-16); Aspartate Amino Transferase 21 U/L (15-37); Bilirubin,Total 0.5 mg/dL (0.00-1.00); Blood Urea Nitrogen 31 mg/dL (7-18); Calcium 8.4 mg/dL (8.5-10.1); Carbon Dioxide 28 mmol/L (21-32); Chloride 105 mmol/L (98-108); Cholesterol 220 mg/dL (0-200); Estimated Glomerular Filt Rate > 60; Glucose 119 mg/dL (70-99); HDL Direct 43 mg/dL (40-60); LDL Cholesterol Calculated 122 mg/dL (<130); Osmolality Calculated 299 mOsm/kg (285-295); Potassium 4.1 mmol/L (3.5-5.1); Sodium 141 mmol/L (136-145); Thyroid Stimulating Hormone 0.03 uIU/mL (0.36-3.74); Total Protein 6.5 g/dL (6.4-8.2); Triglycerides 276 mg/dL (0-150)
[2021-05-19 14:51] LABS: Platelet Estimate Adequate (Adequate)
== END 2021-05-19 13:27 | disposition home or self-care (01) ==
LOC: CHSLAB 13:28
PROVIDERS: PCP Family Medicine; Visit Provider Family Medicine
DX: I10 Essential (primary) hypertension (principal)
CPT/HCPCS: 36415; 80053; 80061; 81001; 82043; 84443; 85025

== ENCOUNTER 2021-05-30 16:07 | Outpatient (CLI) | payer BC, SELFPAY ==
[2021-05-30 17:40] LABS: SARS-CoV-2 Ag Negative (Negative)
== END 2021-05-30 16:08 | disposition home or self-care (01) ==
LOC: CHSLAB 16:09
PROVIDERS: PCP Family Medicine; Visit Provider Family Medicine
DX: Z20.822 Contact with and (suspected) exposure to COVID-19 (principal)
CPT/HCPCS: 87426; C9803

== ENCOUNTER 2021-10-05 16:02 | Outpatient (RCR) | payer BC, SELFPAY ==
--- NOTE | 2021-10-05 17:24 | PTOPEVAL ---
Thank you for referring Marquita Michele to [facility].? The patient is scheduled to be seen for therapy? ____x/week for ___ weeks. Please review, sign, date and return this plan of care BRENNON. I agree with and certify that the following plan of care is medically necessary. Referring Physician Date Admitting Provider: Attending Provider: Yo Pink MD Referring Provider: *PT Outpatient Evaluation Start: 10/05/21 16:13 Freq: Status: Active Protocol: Document 10/05/21 16:10 [facility] (Rec: 10/05/21 17:23 [facility] [id number]) Therapy Assessment Status Assessment Status Assessment Status Evaluation Outpatient Past Medical History Neurological History Hx Neurological Disorders No Significant History Cardiovascular History Hx Hypertension Yes Hx Palpitations Yes Respiratory History Hx Sleep Apnea Yes Gastrointestinal History Hx Gastroesophageal Reflux Disease Yes Genitourinary History Hx Genitourinary Disorders No Significant History Musculoskeletal History Hx Arthritis Yes Hx Fractures Yes: 2010 left foot Hematological History Hx Anemia Yes Hx Blood Transfusions Yes Endocrine History Hx Hypothyroidism Yes HEENT History Hx HEENT Disorders No Significant History Integumentary History Hx Skin Disorders No Significant History Reproductive History Hx Abnormal Uterine Bleeding Yes Psychosocial History Hx Anxiety Yes Pain History History of Any Previous or Ongoing No Significant History Instance of Pain Anesthesia History Hx Anesthesia Reactions No Significant History Evaluation Information Problem Diagnosis unsteady gait, debility, generalized weakness Onset 05/24/21 Subjective Information patient reports she is 14 week Query Text:As Reported By Patient/ post chemo treatment. 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 patient reports radiology and chemo is done. she reports her current blood work is good at this time. she reports no falls. she reports she was getting around with a walker at one point, but is now getting around with a cane. she reports she is struggling still with her endurance,
--- NOTE | 2022-02-26 14:47 | PCPTNOTE ---
Mrs. Michele attended a total of 6 treatment sessions from 10/05/21 to 11/10/21. She has failed to return to the clinic or contact the clilnic. Refer to 11/10/21 daily note for discharge status.
== END 2021-11-10 23:59 | disposition home or self-care (01) ==
LOC: CHSPT 16:02
PROVIDERS: PCP Family Medicine; Visit Provider Family Medicine
DX: R26.81 Unsteadiness on feet (principal)
CPT/HCPCS: 97110; 97161; 97530

== ENCOUNTER 2021-10-16 14:22 | Outpatient (CLI) | payer BC, SELFPAY ==
[2021-10-16 15:27] LABS: SARS-CoV-2 Ag Positive (Negative)
[2021-10-16 15:32] LABS: Influenza Control Valid (Valid)
== END 2021-10-16 14:23 | disposition home or self-care (01) ==
LOC: CHSLAB 14:26
PROVIDERS: PCP Family Medicine; Visit Provider Nurse Practitioner Family
DX: U07.1 COVID-19 (principal); R05.9 Cough, unspecified; J02.9 Acute pharyngitis, unspecified; C54.1 Malignant neoplasm of endometrium
CPT/HCPCS: 87426; 87804; C9803

== ENCOUNTER 2021-10-17 10:03 | Outpatient (RCR) | payer BC, SELFPAY ==
[2021-10-17] MEDS: diphenhydrAMINE HCl CAP 25 MG CAPSULE PO (12:12)
[2021-10-17] MEDS: ACETAMINOPHEN 325 MG TABLET 650 MG PO (12:12)
[2021-10-17] MEDS: FAMOTIDINE 20 MG TABLET PO (12:12)
[2021-10-17 12:24] VITALS: BP 106/73; PULSE 74; TEMP 36.6; O2SAT 98
[2021-10-17 13:33] VITALS: BP 106/76; PULSE 68; O2SAT 100
[2021-10-17] MEDS: HEPARIN SODIUM LOCK FLUSH 500 UNITS/5 ML SYRINGE IV PUSH (13:38)
== END 2021-10-17 17:00 ==
LOC: AMCINF 10:03
PROVIDERS: PCP Family Medicine; Referring Provider Family Medicine; Visit Provider Internal Medicine Hematology & Oncology
DX: U07.1 COVID-19 (principal); I10 Essential (primary) hypertension; D84.9 Immunodeficiency, unspecified
CPT/HCPCS: A9270; M0247; Q0247